=== PATIENT | male | born 1955 | race Caucasian/White ===

== ENCOUNTER → 2016-03-13 | Outpatient (CLI) | payer BC ==
--- NOTE | 2016-03-13 21:13 | DI ---
LEFT SHOULDER, 03/13/2016 1:10 PM: Clinical History: Left shoulder pain. Previous Exam: None at this facility. 4 views are submitted. 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 The glenohumeral joint is intact. The visualized portions of the left lung are normal. Reading: Status post previous resection of the lateral head of the clavicle. The remainder of the exam is norm al.
== END ==
LOC: ORTHO 14:04
PROVIDERS: ATTEND Orthopaedic Surgery
DX: M25.512 Pain in left shoulder (principal); Z98.890 Other specified postprocedural states; X50.0XXA Overexertion from strenuous movement or load, initial encounter
CPT/HCPCS: 73030

== ENCOUNTER → 2016-07-31 | Outpatient (CLI) | payer BC ==
--- NOTE | 2016-07-31 11:20 | DI ---
MRI UP EXTREMITY JNT W/O CN,07/31/2016 7:54 AM: Clinical History: Left shoulder impingement Previous Exam: March 13, 2016 Findings: Multiplanar MR images are obtained through the left shoulder without contrast, and demonstrate postsu rgical changes with metallic density overlying the acromion process. There is some widening of the acromioclavicular joint most consistent with prior surgery. The acromion process is within normal limits with a concave undersurface. The rotator cuff is unremarkable with a normal insertion on the greater tubercle. The long head of the biceps tendon is well seated within the bicipital groove. There is a small left shoulder joint effusion. There are some degenerative changes involving the posterior inferior glenoid with some subchondral cy st formation. The long head of the biceps tendon is well seated within the bicipital groove. There is a trace amoun t of fluid surrounding the long head of the biceps tendon. Signal within the surrounding musculature is unremarkable. The rotator cuff is normal. There is a very small shoulder joint effusion. Major vascular flow voids are unremarkable. Impression: 1. Mild increased bony edema involving the posterior inferior margin of the glenoid. 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 2. Postsurgical changes involving the acromioclavicular joint. 3. Small left shoulder joint effusion. 4. Trace amount of fluid surrounding the long head of biceps tendon.
== END ==
LOC: MRI 07:50
PROVIDERS: ATTEND Orthopaedic Surgery
DX: M75.42 Impingement syndrome of left shoulder (principal); M25.412 Effusion, left shoulder
CPT/HCPCS: 73221